=== PATIENT | male | born 1965 | race Caucasian/White ===

== ENCOUNTER 2018-12-09 10:24 | Emergency (ER) | payer MEDICAID ==
[~2018-12-09] VITALS: Wt 70.5 kg
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
[2018-12-09] MEDS ORDERED: SOD CHLORIDE 0.9% 1,000 ML IV STA (11:23)
[2018-12-09] MEDS ORDERED: morphine 4 MG/ML VIAL IV STA (11:23)
[2018-12-09] MEDS ORDERED: ONDANSETRON 4 MG INJ IV STA (11:23)
[2018-12-09] MEDS ORDERED: IOHEXOL 300MG/ML 150 ML BTL ONE (12:22)
[2018-12-09] MEDS ORDERED: SOD CHLORIDE 0.9% 100 ML ONE (12:22)
[2018-12-09 15:00] VITALS: BP 125/65; PULSE 86; RESP 18
== END 2018-12-09 16:21 | disposition home or self-care (01) ==
LOC: E/R 10:24
DX: R10.84 Generalized abdominal pain (principal); I10 Essential (primary) hypertension; E11.65 Type 2 diabetes mellitus with hyperglycemia; Z91.14 Patient's other noncompliance with medication regimen
CPT/HCPCS: 36415; 71045; 74177; 80053; 81003; 82962; 83690; 85025; 96374; 96375; J2270; J2405; J7030; Q9967; Z7502; Z7610